=== PATIENT | female | born 1985 | race Caucasian/White ===

== ENCOUNTER 2019-02-03 17:46 | Emergency (ER) | payer SELFPAY ==
[~2019-02-03] VITALS: Ht 149.9 cm; Wt 62.0 kg
[2019-02-03] MEDS ORDERED: PENICILLN VK500 MG PO (18:28)
[2019-02-03 18:45] VITALS: BP 129/86
== END 2019-02-03 18:45 | disposition home or self-care (01) | DRG 159 ==
LOC: ED 17:46
DX: K04.7 Periapical abscess without sinus (principal)

== ENCOUNTER 2019-02-05 03:00 | Emergency (ER) | payer SELFPAY ==
[~2019-02-05] VITALS: Ht 149.9 cm; Wt 61.0 kg
[~2019-02-05 03:00] MED LIST: PENICILLN VK500 MG PO
[2019-02-05 03:39] LABS: HEMATOCRIT 36.4 % (37.0-47.0); HEMOGLOBIN 12.1 g/dl (12.0-16.0); IMMATURE GRANULOCYTES 0.3 % (0.0-5.0); MEAN CELL VOLUME 96.3 fL CALC (80.0-100.0); MEAN CORPUSCULAR HGB CONC 33.2 g/L CALC (32.0-36.0); NEUT# 3.4 thou/uL (2.00-7.15); RED BLOOD COUNT 3.78 mill/uL (4.20-5.60); RED CELL DISTRI WIDTH 13.1 % (11.5-15.5)
[2019-02-05 03:40] LABS: URINE BLOOD DIPSTICK LARGE (NEGATIVE); URINE COLOR YELLOW; URINE GLUCOSE - DIPSTICK NEGATIVE (NEGATIVE); URINE KETONE NEGATIVE (NEGATIVE); URINE LEUK ESTERASE TRACE (NEGATIVE); URINE NITRITE - DIPSTICK NEGATIVE (Negative); URINE PH 5.5 (4.5-8.0); URINE PROTEIN - DIPSTICK TRACE mg/dL (NEG-TRACE); URINE SPECIFIC GRAVITY 1.025
[2019-02-05 03:51] LABS: ALKALINE PHOSPHATASE 66 u/l (38-126); AMYLASE 52 u/l (30-110); ANION GAP 15 (6-22 (CALC)); BILIRUBIN, TOTAL 0.5 mg/dL (0.0-1.4); BUN 9 mg/dL (7-17); BUN/CREATININE RATIO 13 (12-20 (CALC)); CARBON DIOXIDE 23 mmol/l (22-30); CHLORIDE 110 mmol/l (95-108); CREATININE 0.7 mg/dL (0.5-1.0); GFR > 60 ML/MIN (>=60 (CALC)); GFR FOR AFR.AMER. > 60 ML/MIN (>=60 (CALC)); LIPASE 164 u/l (23-300); POTASSIUM 3.1 mmol/l (3.5-5.1); SGOT/AST 20 u/l (14-36); SODIUM 144 mmol/l (137-146); TOTAL PROTEIN 6.7 g/dL (6.3-8.2); URINE BILIRUBIN - DIPSTICK NEGATIVE (NEGATIVE)
[2019-02-05 03:53] LABS: URINE RBC 50-100 RBC/hpf (0-5)
[2019-02-05 03:54] LABS: URINE BACTERIA MODERATE hpf; URINE MUCUS MANY hpf (NONE-FEW); URINE SQUAMOUS EPITHELIAL CELL FEW EPI/hpf (0-FEW)
[2019-02-05] MEDS ORDERED: TRAMADOL HCL50 MG PO (07:10)
[2019-02-05] MEDS ORDERED: TORADOL PO (07:10)
[2019-02-05] MEDS ORDERED: BACTRIM DS1 TAB PO (07:10)
[2019-02-05 07:19] VITALS: BP 132/77
== END 2019-02-05 07:41 | disposition home or self-care (01) | DRG 694 ==
LOC: ED 03:00
PROVIDERS: Family Medicine
DX: N20.0 Calculus of kidney (principal); K80.20 Calculus of gallbladder without cholecystitis without obstruction; R10.13 Epigastric pain; R11.2 Nausea with vomiting, unspecified; B96.20 Unspecified Escherichia coli [E. coli] as the cause of diseases classified elsewhere; Z16.12 Extended spectrum beta lactamase (ESBL) resistance
CPT/HCPCS: S0164